=== PATIENT | female | born 2000 | race Caucasian/White ===

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

== ENCOUNTER → 2020-08-26 | Outpatient (CLI) | payer BC | END | disposition home or self-care (01) | LOC: LABWHC1 16:30 | PROVIDERS: ATTEND Obstetrics & Gynecology | DX: U07.1 COVID-19 (principal) | CPT/HCPCS: U0003; C9803 ==